=== PATIENT | male | born 1950 | race Caucasian/White ===

== ENCOUNTER 2018-05-12 10:23 | Day surgery (SDC) | payer MEDICARE, OTHER, SELFPAY ==
[2018-05-12] MEDS: PROPARACAINE 0.5% OPHTH SOL 2 DROPS EYE-OP (11:01)
[2018-05-12 11:04] VITALS: BMI 19.5
[2018-05-12] MEDS: CATARACT EYE COMPOUND (10 DROPS/SYRINGE) 3 DROPS EYE-OP (11:12)
[2018-05-12 11:19] VITALS: BP 113/70; PULSE 53; RESP 12; TEMP 36.5; O2SAT 100
--- NOTE | 2018-05-12 12:24 | PM.PREOP ---
Pre-operative Note Interval Note History & Physical reviewed/Exam performed by Physician: No Changes to H&P: No
--- NOTE | 2018-05-12 12:24 | PM.OP.1 ---
Operative Date/Time/Diagnoses Pre-op diagnosis: Nuclear cataract right eye Procedure & Clinicians Procedure: Cataract Surgery Same procedure as scheduled: Yes Surgeon: Scar Catalan Anesthesia Type: MAC +/- and Sedation Operative Notes Procedure in detail: Patient brought to the operating suite. Tetracaine drops placed in the right eye. Patient was prepped and draped in sterile manner. Wire lid speculum was placed in the eye. Betadine drops were placed on the eye. This was irrigated. Lidocaine jelly was placed on the eye. A paracentesis port was created with a side-port blade. 0.1 mL 1% preservative free lidocaine was injected into the anterior chamber. The anterior chamber was deepened with viscoelastic. 2.6 mm keratome was used to create a temporal clear corneal incision. Cystotome and Utrata forceps were used to create continuous tear capsulorrhexis. Balanced salt solution was used to hydro dissect the nucleus. The phacoemulsification handpiece was inserted and the nucleus was removed using the stop and chop technique. The irrigation aspiration handpiece was inserted and the remaining cortex was removed. Anterior chamber was deepened with viscoelastic. An Grimaldo ZCB00 intraocular lens with a power of 21.0 was injected into the capsular bag. Irrigation aspiration handpiece was inserted and the remaining viscoelastic was removed. Incision was hydrated with balanced salt solution and found to be leak free with pressure with Weck-Opal sponges. 0.1 mL Vigamox injected anterior chamber. 0.3 mL Kenalog 10 mg was injected subconjunctivally. Lid speculum was removed. The patient left the operating room in excellent condition. Complications: none Condition: stable Disposition: same day surgery
[2018-05-12] MEDS: LIDOCAINE JELLY 2% 5 ML 1 APPLIC TOP (12:46)
[2018-05-12] MEDS: CHONDROIDTIN/SOD HYALURONATE 1.05 ML SYRINGE INTRAOCULA (12:46)
[2018-05-12] MEDS: TETRACAINE 0.5% OPHTH DROPS 4 ML 2 DROPS EYE-OP (12:47)
[2018-05-12] MEDS: PHENYLEPHRINE/LIDOCAINE VIAL (OR) 0.2 ML EYE-OP (12:47)
[2018-05-12] MEDS: MOXIFLOXACIN OPHTH DROPS 3 ML BOTTLE 2 DROPS INJ (12:47)
[2018-05-12] MEDS: TRIAMCINOLONE 50 MG/5 ML VIAL INJ (12:48)
[2018-05-12] MEDS: BALANCED SALT IRRIG SOLN NO.2 500 ML, EPINEPHrine 1 MG IRR (12:48)
[2018-05-12 12:55] VITALS: BP 107/57; PULSE 62; RESP 20; TEMP 36.1; O2SAT 97
--- NOTE | 2018-05-26 13:33 | SUR.PREOP ---
Approx times: 929 late entry: Patient came in for surgery, NPO. VS taken; HR 41 BP 84/51. Patient questioned about how he felt, only symptom was that he gets lightheaded when he stands too quickly. States that this has been going on for 4 1/2 years since he started his heart medication. Denies any other symptoms. Also states that he has a pacemaker that is set at 60. HR variable, going down to 37 and into the 40s. 0945 BP 101/63 HR 37. Called into the OR and notified Dr. Reyes. Case cancelled after he discussed it with Dr. Catalan. brought to the bedside and explained to them both that it had been cancelled. 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 1015 patient continues to deny any symptoms, placed on monitor to observe BP and HR.
--- NOTE | 2018-05-26 13:44 | SUR.PREOP ---
0940 (correction) Patient was placed on monitor. Dr.s Reyes and Hossein spoke with patient, plan to reschedule surgery after cardiac issues are addressed. Coffee given to patient. 1000 Rhythm strips printed and shown to Dr. Reyes between cases. He spoke to patient and reaffirmed the cancellation.
--- NOTE | 2018-05-26 13:47 | SUR.PREOP ---
approx 1100 S. Arjun RN (lead) received return phone call from the cardiology and explained the situation. She conveyed the plan of action to the patient & spouse. 1114 Instructions written and printed and reviewed again. Patient plans to follow up with pacer rep for a status check.
--- NOTE | 2018-05-26 14:45 | SUR.PREOP ---
All notes written today (and any edits) were in error. They were to be documented on the 05/26/18 visit. Please disregard.
== END 2018-05-12 13:05 | disposition home or self-care (01) ==
LOC: OR 10:31
PROVIDERS: PCP Family Medicine; Visit Provider Ophthalmology
DX: H25.11 Age-related nuclear cataract, right eye (principal); Z95.0 Presence of cardiac pacemaker; I51.9 Heart disease, unspecified
CPT/HCPCS: J0171; J2250; J3301

== ENCOUNTER 2018-05-26 09:00 | Day surgery (SDC) | payer SELFPAY ==
--- NOTE | 2018-05-26 14:53 | SUR.PREOP ---
Approx times: 0930 late entry: Patient came in for surgery, NPO. VS taken; HR 41 BP 84/51. Patient questioned about how he felt, only symptom was that he gets lightheaded when he stands too quickly. States that this has been going on for 4 1/2 years since he started his heart medication. Denies any other symptoms. Also states that he has a pacemaker that is set at 60. HR variable, going down to 37 and into the 40s. 0945 BP 101/63 HR 37. Called into the OR and notified Dr. Reyes. Case cancelled after he discussed it with Dr. Catalan. brought to the bedside and explained to them both that it had been cancelled. 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 1015 patient continues to deny any symptoms, placed on monitor to observe BP and HR. ~1100 José Antonio Díaz RN (lead) received call from Cardiology and relayed info regarding plan of care to the patient & spouse. This was written into the discharge note and reviewed again with both.
--- NOTE | 2018-05-26 15:46 | SUR.PREOP ---
No patient care beyond VS was done -- no IV start. Case cancelled after Vitals were relayed to anesthesia.
--- NOTE | 2018-05-26 16:53 | SUR.PREOP ---
LOIS'd [id number]
== END 2018-05-26 11:14 | disposition home or self-care (01) ==
PROVIDERS: PCP Family Medicine; Visit Provider Ophthalmology

== ENCOUNTER 2018-06-16 11:30 | Day surgery (SDC) | payer MEDICARE, OTHER, SELFPAY ==
[2018-06-16 12:15] VITALS: PULSE 57; RESP 16; TEMP 36.3; O2SAT 96
[2018-06-16 12:37] VITALS: BMI 19.9
[2018-06-16] MEDS: PROPARACAINE 0.5% OPHTH SOL 2 DROPS EYE-OP (13:06)
[2018-06-16] MEDS: CATARACT EYE COMPOUND (10 DROPS/SYRINGE) 3 DROPS EYE-OP (13:15)
[2018-06-16 13:27] VITALS: BP 118/62
--- NOTE | 2018-06-16 13:44 | PM.PREOP ---
Pre-operative Note Interval Note History & Physical reviewed/Exam performed by Physician: No Changes to H&P: No
--- NOTE | 2018-06-16 13:44 | PM.OP.1 ---
Operative Date/Time/Diagnoses Pre-op diagnosis: Nuclear Cataract Left eye Post-op diagnosis: same Procedure & Clinicians Surgeon: Scar Catalan Anesthesia Type: MAC +/- and Sedation Operative Notes Procedure in detail: Patient brought to the operating suite. Tetracaine drops placed in the left eye. Patient was prepped and draped in sterile manner. Wire lid speculum was placed in the eye. Betadine drops were placed on the eye. This was irrigated. Lidocaine jelly was placed on the eye. A paracentesis port was created with a side-port blade. 0.1 mL 1% preservative free lidocaine was injected into the anterior chamber. The anterior chamber was deepened with viscoelastic. 2.6 mm keratome was used to create a temporal clear corneal incision. Cystotome and Utrata forceps were used to create continuous tear capsulorrhexis. Balanced salt solution was used to hydro dissect the nucleus. The phacoemulsification handpiece was inserted and the nucleus was removed using the stop and chop technique. The irrigation aspiration handpiece was inserted and the remaining cortex was removed. Anterior chamber was deepened with viscoelastic. An Grimaldo ZCB00 intraocular lens with a power of 16.5 was injected into the capsular bag. Irrigation aspiration handpiece was inserted and the remaining viscoelastic was removed. Incision was hydrated with balanced salt solution and found to be leak free with pressure with Weck-Opal sponges. 0.1 mL Vigamox injected anterior chamber. 0.3 mL Kenalog 10 mg was injected subconjunctivally. Lid speculum was removed. The patient left the operating room in excellent condition. Complications: none Condition: stable Disposition: same day surgery
[2018-06-16] MEDS: MOXIFLOXACIN OPHTH DROPS 3 ML BOTTLE 2 DROPS INJ (14:02)
[2018-06-16] MEDS: TRIAMCINOLONE 50 MG/5 ML VIAL INJ (14:02)
[2018-06-16] MEDS: PHENYLEPHRINE/LIDOCAINE VIAL (OR) 0.2 ML EYE-OP (14:02)
[2018-06-16] MEDS: CHONDROIDTIN/SOD HYALURONATE 1.05 ML SYRINGE INTRAOCULA (14:02)
[2018-06-16] MEDS: LIDOCAINE JELLY 2% 5 ML 1 APPLIC TOP (14:03)
[2018-06-16] MEDS: BALANCED SALT IRRIG SOLN NO.2 500 ML, EPINEPHrine 1 MG IRR (14:03)
[2018-06-16] MEDS: TETRACAINE 0.5% OPHTH DROPS 4 ML 2 DROPS EYE-OP (14:03)
== END 2018-06-16 14:32 | disposition home or self-care (01) ==
LOC: OR 11:33
PROVIDERS: PCP Family Medicine; Visit Provider Ophthalmology
DX: H25.12 Age-related nuclear cataract, left eye (principal); Z95.0 Presence of cardiac pacemaker; I51.9 Heart disease, unspecified
CPT/HCPCS: J0171; J2250; J3010; J3301

== ENCOUNTER 2025-01-12 23:10 | Emergency (ER) | payer MEDICARE, OTHER, SELFPAY ==
[2025-01-12 23:15] VITALS: BP 92/66; PULSE 77; RESP 18; TEMP 36.3; O2SAT 97; BMI 19.5
--- NOTE | 2025-01-12 23:16 | EKG_ITS ---
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
--- NOTE | 2025-01-12 23:16 | ED.ARRPALP ---
HPI - Arrhythmia/Palpitations <Keshia Resendiz, DO - Last Filed: 01/13/25 21:13> General Chief Complaint: Arrhythmia/Palpitations Stated Complaint: Elevated Heart Rate, Dizziness Time Seen by Provider: 01/12/25 23:15 History of Present Illness HPI narrative: Patient is a 74-year-old male history of congestive heart failure, ICD presenting today with some dizziness palpitations. He is found to be in VT, blood pressure is 93. He is awake alert oriented says it does not feel great no significant shortness of breath. Patient says he was having a normal day he went out for a hike before dinner they had pizza and then around 645 his watch alerted him that his heart rate was fast. He just started feeling weak and fatigued not quite right. His heart rate went to the 130s and then back down to 60 a couple of times. They started to make their way by private vehicle [facility] over to the emergency department. He is found to be in a ventricular tachycardia rate 150s upon arrival. He has been taking Eliquis. Steps being made for emergent cardioversion. However at 2330 ICD spontaneously went off, and shocked patient. He may went into sinus rhythm blood pressure improved. Patient has a history of nonischemic cardiomyopathy has had atrial fibrillation post ablation has had ventricular tachycardia AICD in place follow closely at [facility] with Dr. Bryant and Dr. Vila. Related Data Home Medications ?Medication ?Instructions ?Recorded ?Confirmed apixaban 5 mg tablet (Eliquis) 5 mg PO BID 05/12/18 01/13/25 carvedilol 12.5 mg tablet 12.5 mg PO BID 05/12/18 01/12/25 eplerenone 25 mg tablet 25 mg PO DAILY 05/12/18 01/13/25 smrekfby-czj-nenjh acid 0.4 1 tab PO DAILY 05/12/18 01/13/25 mg-lycopene 300 mcg-lutein 250 mcg tablet (Centrum Silver) sacubitril 49 mg-valsartan 51 mg 1 tab PO BID 05/12/18 01/13/25 tablet (Entresto) brensocatib 10 mg tablet 10 mg PO DAILY 01/12/25 01/12/25 (Brinsupri) carvedilol 25 mg tablet See Rx Instructions PO .COMPLEX 01/12/25 01/13/25 amiodarone 200 mg tablet 200 mg PO DAILY 01/13/25 01/13/25 empagliflozin 10 mg tablet 10 mg PO DAILY 01/13/25 01/13/25 (Jardiance) ipratropium bromide 42 mcg (0.06 2 spray intranasal 4XD 01/13/25 01/13/25 %) nasal spray levothyroxine 88 mcg tablet 88 mcg PO DAILY 01/13/25 01/13/25 rosuvastatin 20 mg tablet 20 mg PO DAILY 01/13/25 01/13/25 tamsulosin 0.4 mg capsule 0.8 mg PO DAILY 01/13/25 01/13/25 Allergies Allergy/AdvReac Type Severity Reaction Status Date / Time adhesive tape Allergy Mild Redness of Verified 01/12/25 23:15 Skin latex Allergy Mild erythema Verified 01/12/25 23:15 Review of Systems <Alexa Gordon DO - Last Filed: 01/13/25 18:41> Review of Systems ROS Unobtainable: All systems reviewed & are unremarkable except as noted in HPI and below Patient History <Keshia Resendiz DO - Last Filed: 01/13/25 21:13> Social History household members: spouse Smoking Status: Former smoker Exam <Keshia Resendiz DO - Last Filed: 01/13/25 21:13> Initial Vital Signs Initial Vital Signs: Vital Signs Temperature 97.3 F L 01/12/25 23:15 Pulse Rate 77 01/12/25 23:15 Respiratory Rate 18 01/12/25 23:15 Blood Pressure 92/66 01/12/25 23:15 Pulse Oximetry 97 01/12/25 23:15 Oxygen Delivery Method Room Air 01/12/25 23:15 GENERAL: Thin 74-year-old male and in [no acute] distress. HEENT: Head atraumatic,EOMI, pupils reactive, face symmetric, [moist] mucous membranes CARDIOVASCULAR: Regular rate and rhythm without murmurs, rubs or gallops. RESPIRATORY: Breath sounds equal bilaterally, no wheezes rales or rhonchi. ABDOMEN: Soft, nontender. Normoactive bowel sounds all 4 quadrants. No guarding or rebound. EXTREMITIES: Normal range of motion, no clubbing or edema. Neurovascularly intact NEUROLOGICAL: Alert and oriented x4.Normal gait and speech. SKIN: Warm, dry, no laceration, no petechiae, no rashes or lesions. <Alexa Gordon, DO - Last Filed: 01/13/25 18:41> Initial Vital Signs Initial Vital Signs: Vital Signs Temperature 97.3 F L 01/12/25 23:15 Pulse Rate 77 01/12/25 23:15 Respiratory Rate 18 01/12/25 23:15 Blood Pressure 92/66 01/12/25 23:15 Pulse Oximetry 97 01/12/25 23:15 Oxygen Delivery Method Room Air 01/12/25 23:15 Course <Keshia Resendiz, DO - Last Filed: 01/13/25 21:13> Orders Ordered: Discontinued Medications Etomidate (Etomidate 2 Mg/Ml 10 Ml Vial) 6.4 mg 0.1 mg/kg (6.4 mg) IV NOW ONE Stop: 01/12/25 23:24 Last Admin: 01/13/25 07:30 Dose: Not Given Documented By: CTS Vital Signs Vital signs: Vital Signs - 8 hr 01/13/25 03:30 01/13/25 04:00 01/13/25 04:00 Temperature Pulse Rate 60 60 Respiratory Rate 11 L 15 Blood Pressure 89/55 L Pulse Oximetry 97 95 Oxygen Delivery Method Room Air 01/13/25 04:30 01/13/25 05:00 01/13/25 05:00 Temperature Pulse Rate 60 60 Respiratory Rate 11 L 21 Blood Pressure 81/53 L Pulse Oximetry 96 95 Oxygen Delivery Method 01/13/25 05:30 01/13/25 06:00 01/13/25 06:01 Temperature Pulse Rate 60 60 Respiratory Rate 15 11 L Blood Pressure 104/58 L Pulse Oximetry 94 97 Oxygen Delivery Method 01/13/25 06:01 01/13/25 06:09 01/13/25 06:09 Temperature Pulse Rate 60 60 Respiratory Rate 27 H Blood Pressure 107/66 Pulse Oximetry 96 98 Oxygen Delivery Method 01/13/25 06:12 01/13/25 06:30 01/13/25 07:00 Temperature 97.9 F Pulse Rate 60 60 Respiratory Rate 18 13 Blood Pressure 107/66 116/65 Pulse Oximetry 97 95 Oxygen Delivery Method Room Air 01/13/25 07:00 01/13/25 07:30 01/13/25 08:08 Temperature Pulse Rate 60 60 60 Respiratory Rate 8 L 10 L Blood Pressure Pulse Oximetry 96 97 Oxygen Delivery Method 01/13/25 08:30 01/13/25 09:06 01/13/25 09:06 Temperature Pulse Rate 60 Respiratory Rate 15 Blood Pressure 88/52 L Pulse Oximetry 97 93 Oxygen Delivery Method 01/13/25 09:08 01/13/25 09:08 01/13/25 09:30 Temperature Pulse Rate 60 60 Respiratory Rate 18 16 Blood Pressure 118/59 L Pulse Oximetry 99 98 Oxygen Delivery Method <Alexa Gordon, DO - Last Filed: 01/13/25 18:41> Orders Ordered: Discontinued Medications Etomidate (Etomidate 2 Mg/Ml 10 Ml Vial) 6.4 mg 0.1 mg/kg (6.4 mg) IV NOW ONE Stop: 01/12/25 23:24 Last Admin: 01/13/25 07:30 Dose: Not Given Documented By: CTS Vital Signs Vital signs: Vital Signs - 8 hr 01/13/25 03:30 01/13/25 04:00 01/13/25 04:00 Temperature Pulse Rate 60 60 Respiratory Rate 11 L 15 Blood Pressure 89/55 L Pulse Oximetry 97 95 Oxygen Delivery Method Room Air 01/13/25 04:30 01/13/25 05:00 01/13/25 05:00 Temperature Pulse Rate 60 60 Respiratory Rate 11 L 21 Blood Pressure 81/53 L Pulse Oximetry 96 95 Oxygen Delivery Method 01/13/25 05:30 01/13/25 06:00 01/13/25 06:01 Temperature Pulse Rate 60 60 Respiratory Rate 15 11 L Blood Pressure 104/58 L Pulse Oximetry 94 97 Oxygen Delivery Method 01/13/25 06:01 01/13/25 06:09 01/13/25 06:09 Temperature Pulse Rate 60 60 Respiratory Rate 27 H Blood Pressure 107/66 Pulse Oximetry 96 98 Oxygen Delivery Method 01/13/25 06:12 01/13/25 06:30 01/13/25 07:00 Temperature 97.9 F Pulse Rate 60 60 Respiratory Rate 18 13 Blood Pressure 107/66 116/65 Pulse Oximetry 97 95 Oxygen Delivery Method Room Air 01/13/25 07:00 01/13/25 07:30 01/13/25 08:08 Temperature Pulse Rate 60 60 60 Respiratory Rate 8 L 10 L Blood Pressure Pulse Oximetry 96 97 Oxygen Delivery Method 01/13/25 08:30 01/13/25 09:06 01/13/25 09:06 Temperature Pulse Rate 60 Respiratory Rate 15 Blood Pressure 88/52 L Pulse Oximetry 97 93 Oxygen Delivery Method 01/13/25 09:08 01/13/25 09:08 01/13/25 09:30 Temperature Pulse Rate 60 60 Respiratory Rate 18 16 Blood Pressure 118/59 L Pulse Oximetry 99 98 Oxygen Delivery Method MDM - Arrhythmia/Palpitations <Keshia Resendiz, DO - Last Filed: 01/13/25 21:13> Lab Data 01/12/25 23:30 01/12/25 23:30 Labs: Lab Results 01/12/25 01/13/25 Range/Units 23:30 00:42 WBC 7.5 (4.5-11.0) X10^3/uL RBC 4.71 (4.5-5.9) X10^6/uL Hgb 13.9 (13.5-17.5) g/dL Hct 40.9 L (41-53) % MCV 86.8 (80-100) fL MCH 29.4 (26-34) PG MCHC 33.9 (30-36) % RDW 14.6 (11.6-14.8) % Plt Count 187 (150-400) X10^3/uL Neut % (Auto) 81.0 H (50-75) % Lymph % (Auto) 11.2 L (25-40) % Reagan % (Auto) 5.4 (3-14) % Eos % (Auto) 1.0 L (2-4) % Baso % (Auto) 1.4 (0-2) % Neut # (Auto) 6100 (9722-8943) /uL Lymph # (Auto) 800 L (9506-0089) /uL Reagan # (Auto) 400 (0-900) /uL Eos # (Auto) 100 (0-450) /uL Baso # (Auto) 100 (0-100) /uL PT 16.1 H (9.4-12.5) SECONDS INR 1.4 H (0.9-1.3) APTT 33 (25.1-36.5) SECONDS Sodium 139 (137-145) mmol/L Potassium 4.4 (3.4-5.1) mmol/L Chloride 104 (98-107) mmol/L Carbon Dioxide 22 (22-32) mmol/L BUN 24 H (9-20) mg/dL Creatinine 0.92 (0.66-1.25) mg/dL Estimated GFR > 60 (>60) mL/min BUN/Creatinine Ratio 26.1 H (6-22) Glucose 119 H (70-99) mg/dL Calcium 9.0 (8.4-10.2) mg/dL Magnesium 2.3 (1.6-2.3) mg/dL Total Bilirubin 0.4 (0.2-1.3) mg/dL AST 28 (17-59) IU/L ALT 23 (<50) IU/L Alkaline Phosphatase 55 (38-126) U/L Troponin I < 0.012 (0.01-0.034) ng/mL NT-Pro-B Natriuret Pep 696 H (<450) pg/mL Total Protein 7.1 (6.3-8.2) g/dL Albumin 4.7 (3.5-5.0) g/dL Globulin 2.4 (1.7-4.1) g/dL Albumin/Globulin Ratio 2.0 (1.0-2.8) Lipase 48 (23-300) U/L Urine RBC 30-100/hpf H (0-5/HPF) Urine WBC 0-1/hpf (0-5/HPF) Ur Squamous Epith Cells None seen (0-5/HPF) Urine Bacteria None seen (None) Ur Culture Indicated? Cult not indicated Vol Urine Centrifuged 10ml (spun) Urine Dip Bedside Urine Glucose 1000 mg/dl Bedside Urine Bilirubin - Negative Bedside Urine Ketone - Negative Urine Specific [place] 1.010 Bedside Urine Occult Blood +++ Bedside Urine pH 6.5 Bedside Urine Protein - Negative Bedside Urine Urobilinogen - Negative Bedside Urine Nitrite - Negative Bedside Urine Leukocytes - Negative Esterase Imaging Data Chest x-ray: Radiologist's Impresson: PROCEDURE: XR CHEST 1V INDICATIONS: chest pain TECHNIQUE: One view of the chest was acquired. COMPARISON: [facility] ([place]), CR, XR CHEST 2V, 12/05/2021, 14:36. FINDINGS: Surgical changes and devices: Right-sided cardiac pacer device is in place. Median sternotomy wires are present and appear intact. Lungs and pleura: Mild central pulmonary vascular congestion. No pleural effusion or pneumothorax. No focal consolidation. Mediastinum: Mediastinal contours appear normal. Heart size is normal. Bones and chest wall: No suspicious bony lesions. Overlying soft tissues appear unremarkable. IMPRESSION: Findings consistent with mild CHF/pulmonary edema. No focal consolidation. Dictated by: Seth Mckeon M.D. on 01/13/2025 at 0:08 ECG Data Interpretation: V-tach rate 155 no priors to compare Repeat EKGs paced rhythm rate 60 MDM Narrative Medical decision making narrative: MDM CC: Weakness Complicating co-morbidities: Congestive heart failure nonischemic cardiomyopathy atrial fibrillation ventricular tachycardia Data collected from: Patient Medical records reviewed: My chart reviewed on patient device Differential considered: V-tach VFib AFib with aberrancy left bundle-branch block Exam documented above, pertinent findings include: Alert thin chronically ill 74-year-old male Lab Test results independently reviewed as above. Pertinent findings: CBC unremarkable CMP no electrolyte abnormality no JEAN PIERRE glucose 119 Troponin negative, BNP 696 Independently reviewed EKG as above Ventricular tachycardia rate 155 Imaging studies independently reviewed: Chest x-ray findings consistent with mild congestive heart failure pulmonary edema no focal consolidation Consultations: 0045 Dr. Cuevas cardiology at the [facility] updated patient's symptoms test results agrees that patient likely needs ICD settings changed. However recommends calling EP in the morning. Treatments: ICD Re-evaluations: After ICD went off patient back in sinus rhythm blood pressure improve he is overall feeling better and appears well Discussion: 74-year-old male history of congestive heart failure ventricular tachycardia is ICD placed presenting today in V-tach heart rate 150s. Concern is device did not go off appropriately. Device was interrogated it does appear that he had V-tach events 813 and 1046 last night with heart rates of 170 and 181 ultimately shock delivered at 11:27 p.m. successfully. Called [facility] where patient is followed closely. Decided to wait until morning to talk to electrophysiology. Patient is staying monitored here in the emergency department until device settings can be changed. singed out to Dr. Gordon <Alexa Gordon, DO - Last Filed: 01/13/25 18:41> Lab Data Labs: Lab Results 01/12/25 01/13/25 Range/Units 23:30 00:42 WBC 7.5 (4.5-11.0) X10^3/uL RBC 4.71 (4.5-5.9) X10^6/uL Hgb 13.9 (13.5-17.5) g/dL Hct 40.9 L (41-53) % MCV 86.8 (80-100) fL MCH 29.4 (26-34) PG MCHC 33.9 (30-36) % RDW 14.6 (11.6-14.8) % Plt Count 187 (150-400) X10^3/uL Neut % (Auto) 81.0 H (50-75) % Lymph % (Auto) 11.2 L (25-40) % Reagan % (Auto) 5.4 (3-14) % Eos % (Auto) 1.0 L (2-4) % Baso % (Auto) 1.4 (0-2) % Neut # (Auto) 6100 (3860-9879) /uL Lymph # (Auto) 800 L (3699-8862) /uL Reagan # (Auto) 400 (0-900) /uL Eos # (Auto) 100 (0-450) /uL Baso # (Auto) 100 (0-100) /uL PT 16.1 H (9.4-12.5) SECONDS INR 1.4 H (0.9-1.3) APTT 33 (25.1-36.5) SECONDS Sodium 139 (137-145) mmol/L Potassium 4.4 (3.4-5.1) mmol/L Chloride 104 (98-107) mmol/L Carbon Dioxide 22 (22-32) mmol/L BUN 24 H (9-20) mg/dL Creatinine 0.92 (0.66-1.25) mg/dL Estimated GFR > 60 (>60) mL/min BUN/Creatinine Ratio 26.1 H (6-22) Glucose 119 H (70-99) mg/dL Calcium 9.0 (8.4-10.2) mg/dL Magnesium 2.3 (1.6-2.3) mg/dL Total Bilirubin 0.4 (0.2-1.3) mg/dL AST 28 (17-59) IU/L ALT 23 (<50) IU/L Alkaline Phosphatase 55 (38-126) U/L Troponin I < 0.012 (0.01-0.034) ng/mL NT-Pro-B Natriuret Pep 696 H (<450) pg/mL Total Protein 7.1 (6.3-8.2) g/dL Albumin 4.7 (3.5-5.0) g/dL Globulin 2.4 (1.7-4.1) g/dL Albumin/Globulin Ratio 2.0 (1.0-2.8) Lipase 48 (23-300) U/L Urine RBC 30-100/hpf H (0-5/HPF) Urine WBC 0-1/hpf (0-5/HPF) Ur Squamous Epith Cells None seen (0-5/HPF) Urine Bacteria None seen (None) Ur Culture Indicated? Cult not indicated Vol Urine Centrifuged 10ml (spun) Urine Dip Bedside Urine Glucose 1000 mg/dl Bedside Urine Bilirubin - Negative Bedside Urine Ketone - Negative Urine Specific [place] 1.010 Bedside Urine Occult Blood +++ Bedside Urine pH 6.5 Bedside Urine Protein - Negative Bedside Urine Urobilinogen - Negative Bedside Urine Nitrite - Negative Bedside Urine Leukocytes - Negative Esterase MDM Narrative Medical decision making narrative: MDM CC: Weakness Complicating co-morbidities: Congestive heart failure nonischemic cardiomyopathy atrial fibrillation ventricular tachycardia Data collected from: Patient Medical records reviewed: My chart reviewed on patient device Differential considered: V-tach VFib AFib with aberrancy left bundle-branch block Exam documented above, pertinent findings include: Alert thin chronically ill 74-year-old male Lab Test results independently reviewed as above. Pertinent findings: CBC unremarkable CMP no electrolyte abnormality no JEAN PIERRE glucose 119 Troponin negative, BNP 696 Independently reviewed EKG as above Ventricular tachycardia rate 155 Imaging studies independently reviewed: Chest x-ray findings consistent with mild congestive heart failure pulmonary edema no focal consolidation Consultations: 0045 Dr. Cuevas cardiology at the [facility] updated patient's symptoms test results agrees that patient likely needs ICD settings changed. However recommends calling EP in the morning. Treatments: ICD Re-evaluations: After ICD went off patient back in sinus rhythm blood pressure improve he is overall feeling better and appears well Discussion: 74-year-old male history of congestive heart failure ventricular tachycardia is ICD placed presenting today in V-tach heart rate 150s. Concern is device did not go off appropriately. Device was interrogated it does appear that he had V-tach events 813 and 1046 last night with heart rates of 170 and 181 ultimately shock delivered at 11:27 p.m. successfully. Called [facility] where patient is followed closely. Decided to wait until morning to talk to electrophysiology. Patient is staying monitored here in the emergency department until device settings can be changed. singed out to Dr. Gordon 01/13/25 Patient signed out to myself. Patient heart is regular rate lungs are clear. Patient is currently asymptomatic has not had any additional socks overnight. Patient notes that the only recent changes he has started brensocatib yesterday for bronchiectasis but states no new changes otherwise. He noted his watch his what notified him his heart rate was elevated but up to once 50s 160s for hours he transport over here on the [place]. Overnight provider was in process of setting up to shock the patient and he is hypotensive and dizzy with a heart rate in the 160s patient's ICD went off. Patient's labs show appropriate CBC electrolytes are appropriate potassium is 4.4 Mag is 2.3 BUN is 24 with a creatinine 0.92 glucose is 119 troponin was negative, BNP was 696. Chest x-ray is had mild central pulmonary vascular congestion, no focal consolidation. Overnight provider had device interrogated patient appears to be having episodes of V-tach multiple appears that it was attempting to pace patient out of it and then had shock and patient was converted to paced rhythm. This was around midnight patient has been asymptomatic since. Overnight provider spoke to on-call Cardiology at they deferred keeping recommendation until electrophysiology is available this morning. Call out to electrophysiology. Spoke with Cardiology , EP Dr. Monteiro, @ [phone]. He reviewed patients interrogation. Reviewed labs, imaging and EKG. Recommends transfer to for possible ablation and further evaluation. At this time patient can continue with a his regular home medications if he develops recurrent episodes he asked that we give a lidocaine bolus and drip and can also started on amiodarone drip. Dr. Monteiro will callback after talking with his partners to confirm the plan but currently expecting to transfer. Coordinator @ [phone], coming up with plan cardiology is still in talk. Patient did not take his normal morning medications including his Eliquis, amiodarone and carvedilol. 1117, spoke with the patient and family he elects to leave against medical advice and drive himself to . He notes he has been asymptomatic since about midnight last night. He is feeling frustrated with the delay we discussed risks if he developed recurrent episode he does have an ICD in place but there is a chance that it would be inadequate he could have a medical emergency while self transporting. Patient's family expressed their understanding. He elects to still leave. We did call back and updated coordinator. Critical Care Time <Keshia Astrid, DO - Last Filed: 01/13/25 21:13> Critical Care Time Critical Care Time: Yes Total Critical Care Time: 32 Attestation: The high probability of a clinically significant, sudden or life threatening deterioration of the [cardiovascular] system(s) required my full and direct attention, intervention and personal management. The aggregate critical care time was 32 minutes. This time is in addition to time spent performing reported procedures but includes the following: [x] Data Review and interpretation [x] Patient assessment and monitoring of vital signs [x] Documentation [x] Medication orders and management Discharge Plan Departure Patient Disposition: Left Against Medical Advice Clinical Impression: Ventricular tachycardia Activity Restrictions/Additional Instructions: It is not recommended that you drive yourself down to the [facility] but we did call the coordinator at the transfer center they are aware, much referable that you be transported via EMS where they can give medications if you have a medical emergency. Take the packet with your paperwork and information with you. Go to the nearest emergency department if you have new changes while you are driving yourself. Prescriptions: No Action carvedilol 12.5 mg Tablet 12.5 mg PO BID eplerenone 25 mg Tablet 25 mg PO DAILY Centrum Silver 0.4-300-250 mg-mcg-mcg Tablet 1 tab PO DAILY Eliquis 5 mg Tablet 5 mg PO BID sacubitril-valsartan [Entresto] 49-51 mg Tablet 1 tab PO BID carvedilol 25 mg tablet See Rx Instructions PO .COMPLEX Rx Instructions: night orally; Brinsupri 10 mg tablet 10 mg PO DAILY amiodarone 200 mg tablet 200 mg PO DAILY levothyroxine 88 mcg tablet 88 mcg PO DAILY tamsulosin 0.4 mg capsule 0.8 mg PO DAILY ipratropium bromide 42 mcg (0.06 %) spray,non-aerosol 2 spray intranasal 4XD Patient Comments: two sprays BID rosuvastatin 20 mg tablet 20 mg PO DAILY Jardiance 10 mg tablet 10 mg PO DAILY Referrals: Mihai Shell MD [Primary Care Provider, Family Practice] Stand Alone Forms: Patient Portal/API, Against Med. Advice (Azeri)
--- NOTE | 2025-01-12 23:19 | DI.RAD.S_ITS ---
PROCEDURE: XR CHEST 1V INDICATIONS: chest pain TECHNIQUE: One view of the chest was acquired. COMPARISON: [facility] ([place]), CR, XR CHEST 2V, 12/05/2021, 14:36. FINDINGS: Surgical changes and devices: Right-sided cardiac pacer device is in place. Median sternotomy wires are present and appear intact. Lungs and pleura: Mild central pulmonary vascular congestion. No pleural effusion or pneumothorax. No focal consolidation. Mediastinum: Mediastinal contours appear normal. Heart size is normal. Bones and chest wall: No suspicious bony lesions. Overlying soft tissues appear unremarkable. IMPRESSION: Findings consistent with mild CHF/pulmonary edema. No focal consolidation. Dictated by: Seth Mckeon M.D. on 01/13/2025 at 0:08 Approved by: Steh Mckeon M.D. on 01/13/2025 at 0:09
[2025-01-12 23:20] VITALS: PULSE 153; RESP 12; O2SAT 98
[2025-01-12 23:30] VITALS: BP 127/96; PULSE 152; RESP 15; O2SAT 96
[2025-01-12 23:32] VITALS: BP 127/96; PULSE 69; RESP 17; O2SAT 96
[2025-01-12 23:36] VITALS: BP 129/70; PULSE 60; RESP 104; O2SAT 97
[2025-01-12 23:39] LABS: Add Manual Diff / Slide Review NO; Hematocrit 40.9 % (41-53); Hemoglobin 13.9 g/dL (13.5-17.5); Lymphocytes Absolute Auto 800 /uL (1100-4500); Mean Corpuscular HGB Conc 33.9 % (30-36); Mean Corpuscular Hemoglobin 29.4 PG (26-34); Mean Corpuscular Volume 86.8 fL (80-100); Platelet Count 187 X10^3/uL (150-400)
[2025-01-12 23:45] LABS: INR 1.4 (0.9-1.3); Prothrombin Time 16.1 SECONDS (9.4-12.5)
--- NOTE | 2025-01-12 23:46 | EKG_ITS ---
[address] [address] Test Date: 2025-01-12 Pat Name: Jamil Humphrey Department: Room: Gender: Male [employer]: PRINCEVesta : 1950 Requested By: Order Number: [id number] Reading MD: Zac Koch MD Measurements Intervals [place] Rate: 60 P: AR: 178 QRS: 238 QRSD: 156 T: 110 QT: 472 QTc: 472 Interpretive Statements AV dual-paced rhythm Biventricular pacemaker detected Electronically Signed On 01-13-2025 7:29:17 PST by Zac Koch MD
[2025-01-12 23:47] LABS: PTT Partial Thromboplastin Tim 33 SECONDS (25.1-36.5)
[2025-01-12 23:51] LABS: Alanine Aminotransferase 23 IU/L (<50); Albumin 4.7 g/dL (3.5-5.0); Albumin Globulin Ratio 2.0 (1.0-2.8); Alkaline Phosphatase 55 U/L (38-126); Blood Urea Nitrogen 24 mg/dL (9-20); Calcium 9.0 mg/dL (8.4-10.2); Carbon Dioxide 22 mmol/L (22-32); Chloride 104 mmol/L (98-107); Estimated Glomerular Filt Rate > 60 mL/min (>60); Globulin 2.4 g/dL (1.7-4.1); Glucose 119 mg/dL (70-99); Lipase 48 U/L (23-300); Magnesium 2.3 mg/dL (1.6-2.3); Potassium 4.4 mmol/L (3.4-5.1); Sodium 139 mmol/L (137-145); Total Protein 7.1 g/dL (6.3-8.2)
[2025-01-13] VITALS (27 sets, daily range): BP systolic 81–118; BP diastolic 52–66; PULSE 59–63; RESP 8–29; TEMP 36.6; O2SAT 93–99
[2025-01-13 00:03] LABS: Troponin I < 0.012 ng/mL (0.01-0.034)
[2025-01-13 00:17] LABS: HEMOLYSIS 16 (0-50); NT-proBNP (BNP-Adult 18+) 696 pg/mL (<450)
[2025-01-13 01:04] LABS: Culture Indicated Urine Cult Not Indicated
== END 2025-01-13 11:37 | disposition left against medical advice (07) ==
PROVIDERS: Emergency Medicine; Emergency Provider Emergency Medicine; PCP Family Medicine
DX: I47.20 Ventricular tachycardia, unspecified (principal); R42 Dizziness and giddiness; Z79.01 Long term (current) use of anticoagulants; I50.9 Heart failure, unspecified; R07.9 Chest pain, unspecified
CPT/HCPCS: 36415; 71045; 80053; 81003; 81015; 83690; 83735; 83880; 84484; 85025; 85610; 85730; 93005; 99283; 99284